=== PATIENT | male | born 1985 | race Caucasian/White ===

== ENCOUNTER 2024-09-21 09:08 | Emergency (ER) | payer OTHER, SELFPAY ==
--- NOTE | ~2024-09-21 | XR_ITS ---
EXAMINATION: XR HAND 3 OR MORE VIEWS RIGHT HISTORY: pain COMPARISON: There are no prior studies available for comparison. FINDINGS: Three views of the right hand are submitted. Osseous mineralization is normal. There is no fracture or dislocation. The joint spaces are preserved. The soft tissues are unremarkable. XR/XR hand RT min 3V IMPRESSION: Unremarkable examination of the right hand. Electronically signed by: Nirav Ibarra MD 09/21/2024 09:34 AM EDT
--- NOTE | ~2024-09-21 | XR_ITS ---
EXAMINATION: XR KNEE 4 OR MORE VIEWS LEFT HISTORY: pain COMPARISON: There are no prior studies available for comparison. FINDINGS: Four views of the left knee are submitted. Osseous mineralization is normal. There is no fracture or dislocation. The joint spaces are preserved. There is a small amount of fluid in the suprapatellar recess. XR/XR knee LT 4V IMPRESSION: Small joint effusion. Otherwise unremarkable examination of the left knee. Electronically signed by: Nirav Ibarra MD 09/21/2024 09:35 AM EDT
[2024-09-21 09:09] VITALS: BP 126/76; PULSE 97; RESP 18; TEMP 36.6; O2SAT 97; BMI 26.6
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
--- OUTSIDE RECORDS SUMMARY | 2024-09-21 10:34 | XMS_ITS | Clinical Summary ---
Author Organization [facility]. Address [address] [id number] Phone Care Team Providers Care Hair Spinner Name Role Phone Emi Esmer JOHANSEN Primary Care Provider Allergies No known active allergies Medications lisinopril 2.5 MG tablet 03/26/2019 Active Active Problems Problem Noted Date Diagnosed Date Chronic kidney disease stage 3 01/06/2021 Renal dysplasia 01/06/2021 Serum creatinine above reference range Social History Tobacco Use Types Packs/Day Years Used Date Smoking Tobacco: Never Sex and Gender Information Value Date Recorded Sex Assigned at Not on file Legal Sex Male 4:52 PM EST Gender Identity Not on file Sexual Orientation Not on file Last Filed Vital Signs Vital Sign Reading Time Taken Comments Blood Pressure 118/64 03/05/2024 8:56 AM EST Pulse 79 03/05/2024 8:56 AM EST Temperature - - Respiratory Rate - - Oxygen Saturation - - Inhaled Oxygen Concentration - - Weight 94.3 kg (208 lb) 03/05/2024 8:56 AM EST Height 180.3 cm (5' 11 ) 01/11/2020 12:00 PM EDT Body Mass Index 29.01 01/11/2020 12:00 PM EDT Plan of Treatment Health Maintenance Due Date Last Done Comments Hepatitis B Vaccine (1 of 3 - 19+ 3-dose series) 06/30 Pneumococcal Vaccine: Peds ( 0 to 5 Years) and At-Risk Patients (6 to 49 Years) (1 of 2 - PCV) 2004 Influenza Vaccine (Season Ended) 2024 Insurance Care Teams Hair Spinner Relationship Specialty Start Date End Date Esmer Middleton NP [address] [place] [address] PCP - General Nurse Practitioner 01/14/24
[2024-09-21] MEDS: Bacitracin Oint 0.9 GM PACKET 1 APPL TOPICAL (11:22)
[2024-09-21 11:45] VITALS: BP 126/76; PULSE 97; RESP 18; TEMP 36.6; O2SAT 97
== END 2024-09-21 11:45 | disposition home or self-care (01) ==
PROVIDERS: Emergency Provider Emergency Medicine Emergency Medical Services; PCP Nurse Practitioner Family
DX: S60.511A Abrasion of right hand, initial encounter (principal); Y04.2XXA Assault by strike against or bumped into by another person, initial encounter; Y93.9 Activity, unspecified; Y92.9 Unspecified place or not applicable; Y99.9 Unspecified external cause status; S16.1XXA Strain of muscle, fascia and tendon at neck level, initial encounter; M25.40 Effusion, unspecified joint; M25.562 Pain in left knee; M79.641 Pain in right hand; M54.2 Cervicalgia
CPT/HCPCS: 73130; 73564; 99282; 99283

== ENCOUNTER → 2024-09-21 09:15 | Outpatient (BNV) | payer OTHER, SELFPAY | PROVIDERS: PCP Nurse Practitioner Family; Visit Provider Radiology Diagnostic Radiology | DX: M25.462 Effusion, left knee (principal); M79.641 Pain in right hand | CPT/HCPCS: 73130; 73564 ==